=== PATIENT | male | born 1995 | race Caucasian/White ===

== ENCOUNTER 2022-07-27 00:24 | Emergency (ER) | payer SELFPAY ==
[~2022-07-27] VITALS: Ht 185.4 cm; Wt 80.0 kg
[2022-07-27] MEDS ORDERED: ONDANSETRON HCL 4MG/2ML INJ IV ONE (02:00)
[2022-07-27 02:30] VITALS: BP 135/79
== END 2022-07-27 02:40 | disposition home or self-care (01) ==
LOC: ER 00:46
DX: F10.129 Alcohol abuse with intoxication, unspecified (principal); Y90.6 Blood alcohol level of 120-199 mg/100 ml; F41.9 Anxiety disorder, unspecified
CPT/HCPCS: 36415; 80320; 99283; G0480